=== PATIENT | female | born 1990 | race Caucasian/White ===

== ENCOUNTER 2016-07-27 10:11 | Emergency (ER) | payer MEDICAID, OTHER ==
[~2016-07-27] VITALS: Ht 160 cm; Wt 77.0 kg
[2016-07-27 10:23] VITALS: BP 131/88
[2016-07-27 11:38] LABS: CLARITY URINE CLOUDY (CLEAR); COLOR URINE YELLOW (YELLOW); GLUCOSE URINE NEGATIVE (NEGATIVE); KETONES URINE NEGATIVE (NEGATIVE); LEUKOCYTE ESTERASE URINE 2+ (NEGATIVE); NITRITE URINE NEGATIVE (NEGATIVE); OCCULT BLOOD URINE 3+ (NEGATIVE); PROTEIN URINE NEGATIVE (NEGATIVE); UROBILINOGEN URINE 0.2 E.U./dL (0.2-1.0)
[2016-07-27 11:42] LABS: BASOPHILS % 0.4 % (0.0-2.0); DIFFERENTIAL COMMENT 0; EOSINOPHILS % 2.4 % (0.0-5.0); HEMATOCRIT. 41.9 % (36.0-48.0); HEMOGLOBIN. 14.2 g/dL (12.0-16.0); LYMPHOCYTES % 33.6 % (20.0-50.0); MEAN CORPUSCULAR HEMOGLOBIN 26.9 pg (28.0-32.0); MEAN CORPUSCULAR HGB CONC 33.9 g/dL (31.0-37.0); MEAN CORPUSCULAR VOLUME 79.3 fL (81.0-99.0); MEAN PLATELET VOLUME 8.8 fl (7.4-10.4); MONOCYTES % 5.4 % (2.0-8.0); NEUTROPHILS % 58.2 % (40.0-76.0); PLATELET 186 x1000/uL (130-400); RED BLOOD CELL COUNT 5.29 mill/uL (4.2-5.4); RED CELL DISTRIBUTION WIDTH 14.9 % (11.6-14.6); WHITE BLOOD COUNT 6.3 x1000/uL (4.5-11.0)
[2016-07-27 12:00] LABS: RBC URINE 25-50 /hpf (0-2); WBC URINE 25-50 /hpf (0-2)
[2016-07-27 12:01] LABS: BACTERIA URINE 1+; MUCUS URINE 1+ /lpf (< = 2+); SQUAMOUS EPITHELIAL CELL URINE 2+ /lpf (RARE/1+)
[2016-07-27 12:12] LABS: HCG SCREEN NEGATIVE
== END 2016-07-27 14:14 | disposition home or self-care (01) ==
LOC: ER 11:46
DX: N39.0 Urinary tract infection, site not specified (principal); Z97.5 Presence of (intrauterine) contraceptive device
CPT/HCPCS: 36415; 76830; 76856; 81001; 81025; 84703; 85025; 99285; Z7610